=== PATIENT | male | born 1940 | race Caucasian/White ===

== ENCOUNTER 2017-10-06 00:32 | Day surgery (SDC) | payer MEDICARE, OTHER ==
[~2017-10-06] VITALS: Ht 175.3 cm; Wt 78.0 kg
[~2017-10-06 00:32] MED LIST: AMIO200 PO; ASPI325 PO; CEPH500 PO; FURO20 PO; HYDACE5 PO; METO50 PO; MULVITMINF PO; POTA10T PO; UBID100 PO
[2017-10-06] MEDS ORDERED: ATOR20 PO (06:24)
[2017-10-06] MEDS ORDERED: LISI5 PO (06:24)
[2017-10-06] MEDS ORDERED: Prilosec Otc20 MG (06:25)
[2017-10-06] MEDS ORDERED: CHOL10002 PO (06:25)
[2017-10-06] MEDS ORDERED: RANO500T PO (13:35)
== END 2017-10-06 15:14 | disposition home or self-care (01) ==
LOC: MHTC 00:32
DX: I25.119 Atherosclerotic heart disease of native coronary artery with unspecified angina pectoris (principal); I35.0 Nonrheumatic aortic (valve) stenosis; Z95.2 Presence of prosthetic heart valve; Z95.1 Presence of aortocoronary bypass graft; Z87.891 Personal history of nicotine dependence; I10 Essential (primary) hypertension; E78.00 Pure hypercholesterolemia, unspecified
CPT/HCPCS: 85347; 93455; 99152; 99153; C1769; C1894; J1644; J2250; J3010; J7030; Q9967

== ENCOUNTER → 2019-02-07 | Outpatient (CLI) | payer MEDICARE, OTHER ==
[~2019-02-07] MED LIST changes: +ATOR20 PO; +CHOL10002 PO; +LISI5 PO; +Prilosec Otc20 MG; +RANO500T PO
[2019-02-07 11:14] LABS: BASOPHILS ABSOLUTE AUTO 0.06 K/mm3 (0.00-0.23); BASOPHILS PERCENT AUTO 1 % (0-2); EOSINOPHILS ABSOLUTE AUTO 0.16 K/mm3 (0.00-0.68); EOSINOPHILS PERCENT AUTO 3 % (0-6); Hematocrit 33.2 % (37.0-53.0); Hemoglobin 10.7 g/dL (13.5-17.5); IMMATURE GRAN ABSOLUTE AUTO 0.02 K/mm3 (0.00-0.10); IMMATURE GRAN PERCENT AUTO 0 % (0-1); LYMPHOCYTES ABSOLUTE AUTO 1.04 K/mm3 (0.84-5.20); LYMPHOCYTES PERCENT AUTO 17 % (21-46); MONOCYTES ABSOLUTE AUTO 0.67 K/mm3 (0.16-1.47); MONOCYTES PERCENT AUTO 11 % (4-13); Mean Corpuscular HGB 24.7 pg (26.0-34.0); Mean Corpuscular HGB Conc 32.2 g/dL (31.5-36.5); Mean Corpuscular Volume 77 fL (80-100); Mean Platelet Volume 10.6 fL (9.1-12.4); NEUTROPHILS PERCENT AUTO 68 % (41-73); Platelet Count 217 K/mm3 (150-400); RDW Coefficient Variation 15.8 % (11.7-14.2); RDW Standard Deviation 43.1 fL (35.1-46.3); Red Blood Cell Count 4.34 M/mm3 (4.30-5.90); White Blood Cell Count 6.05 K/mm3 (4.00-11.30)
[2019-02-07 12:02] LABS: Alanine Aminotransfer (ALT/SGP 30 U/L (12-78); Albumin/Globulin Ratio 1.2 (0.8-1.8); Alk Phos 57 U/L (40-126); Anion Gap 9 mmol/L (6-16); Aspartate Aminotrans (AST/SGOT 29 U/L (12-37); Bilirubin, Total 0.6 mg/dL (0.1-1.0); Blood Urea Nitrogen 11 mg/dL (8-24); Bun/Creatinine Ratio 11.1 (12.0-20.0); CO2, Blood 25 mmol/L (21-32); CPK Creatine Kinase 167 U/L (39-308); Calcium, Blood 8.8 mg/dL (8.5-10.1); Chloride, Blood 96 mmol/L (98-108); Creatinine, Blood 0.99 mg/dL (0.60-1.20); Globulin, Blood 3.4 g/dL (2.2-4.0); Glomerular Filtration Rate >60 (60-); Glucose, Blood 98 mg/dL (70-99); Potassium, Blood 3.9 mmol/L (3.5-5.5); Sodium, Blood 130 mmol/L (136-145); Total Protein, Blood 7.4 g/dL (6.4-8.2)
[2019-02-07 12:11] LABS: Troponin I <0.017 ng/mL (0.000-0.040)
[2019-02-07 14:02] LABS: Percent Saturation 8.5 % (20.0-50.0)
== END | disposition home or self-care (01) ==
LOC: LAB SHORT 11:07 → LAB EV 11:07
PROVIDERS: General Practice
DX: I20.9 Angina pectoris, unspecified (principal); D64.9 Anemia, unspecified
CPT/HCPCS: 80053; 82550; 82728; 83540; 83550; 84484; 85025

== ENCOUNTER → 2020-11-30 | Outpatient (CLI) | payer MEDICARE, OTHER ==
[2020-12-01 05:52] LABS: Stool Occult Bld Immuno 1 Positive (NEGATIVE)
== END | disposition home or self-care (01) ==
LOC: LAB 14:10 → LAB SHORT 14:10
PROVIDERS: Nurse Practitioner Family
DX: Z12.11 Encounter for screening for malignant neoplasm of colon (principal)
CPT/HCPCS: G0328

== ENCOUNTER → 2022-02-12 | Outpatient (CLI) | payer MEDICARE, OTHER ==
[2022-02-12 11:25] LABS: BASOPHILS ABSOLUTE AUTO 0.09 K/mm3 (0.00-0.23); BASOPHILS PERCENT AUTO 1 % (0-2); EOSINOPHILS ABSOLUTE AUTO 0.09 K/mm3 (0.00-0.68); EOSINOPHILS PERCENT AUTO 1 % (0-6); Hematocrit 40.3 % (37.0-53.0); Hemoglobin 14.5 g/dL (13.5-17.5); IMMATURE GRAN ABSOLUTE AUTO 0.01 K/mm3 (0.00-0.10); IMMATURE GRAN PERCENT AUTO 0 % (0-1); LYMPHOCYTES ABSOLUTE AUTO 1.29 K/mm3 (0.84-5.20); LYMPHOCYTES PERCENT AUTO 16 % (21-46); MONOCYTES ABSOLUTE AUTO 0.77 K/mm3 (0.16-1.47); MONOCYTES PERCENT AUTO 9 % (4-13); Mean Corpuscular HGB 32.2 pg (26.0-34.0); Mean Corpuscular Volume 89 fL (80-100); Mean Platelet Volume 10.7 fL (9.1-12.4); NEUTROPHILS ABSOLUTE AUTO 6.03 K/mm3 (1.96-9.15); NEUTROPHILS PERCENT AUTO 73 % (41-73); Platelet Count 241 K/mm3 (150-400); RDW Coefficient Variation 12.6 % (11.7-14.2); Red Blood Cell Count 4.51 M/mm3 (4.30-5.90); White Blood Cell Count 8.28 K/mm3 (4.00-11.30)
[2022-02-12 11:38] LABS: Albumin/Globulin Ratio 1.2 (0.8-1.8); Bilirubin, Total 0.9 mg/dL (0.1-1.0); Bun/Creatinine Ratio 10.2 (12.0-20.0); Calcium, Blood 8.8 mg/dL (8.5-10.1); Creatinine, Blood 0.98 mg/dL (0.60-1.20); Globulin, Blood 3.4 g/dL (2.2-4.0); Potassium, Blood 3.9 mmol/L (3.5-5.5); Total Protein, Blood 7.4 g/dL (6.4-8.2)
== END ==
LOC: LAB SHORT 11:20
PROVIDERS: Physician Assistant
DX: K92.1 Melena (principal)
CPT/HCPCS: 80053; 85025

== ENCOUNTER → 2022-06-21 | Outpatient (CLI) | payer MEDICARE, OTHER | LOC: LAB SHORT 11:03 → PLD 11:03 | DX: D48.5 Neoplasm of uncertain behavior of skin (principal) | CPT/HCPCS: 88305 ==

== ENCOUNTER → 2022-08-23 | Outpatient (CLI) | payer MEDICARE, OTHER | END | disposition home or self-care (01) | LOC: LAB SHORT 11:32 | DX: E53.8 Deficiency of other specified B group vitamins (principal) | CPT/HCPCS: 82607; 82746 ==

== ENCOUNTER → 2023-07-21 | Outpatient (CLI) | payer MEDICARE, OTHER ==
[2023-07-21 12:14] LABS: BASOPHILS ABSOLUTE AUTO 0.07 K/mm3 (0.00-0.23); BASOPHILS PERCENT AUTO 1 % (0-2); EOSINOPHILS PERCENT AUTO 1 % (0-6); Hematocrit 33.3 % (37.0-53.0); Hemoglobin 11.3 g/dL (13.5-17.5); IMMATURE GRAN ABSOLUTE AUTO 0.02 K/mm3 (0.00-0.10); IMMATURE GRAN PERCENT AUTO 0 % (0-1); LYMPHOCYTES ABSOLUTE AUTO 1.37 K/mm3 (0.84-5.20); LYMPHOCYTES PERCENT AUTO 19 % (21-46); MONOCYTES ABSOLUTE AUTO 0.63 K/mm3 (0.16-1.47); MONOCYTES PERCENT AUTO 9 % (4-13); Mean Corpuscular HGB Conc 33.9 g/dL (31.5-36.5); Mean Corpuscular Volume 91 fL (80-100); Mean Platelet Volume 10.6 fL (9.1-12.4); NEUTROPHILS ABSOLUTE AUTO 4.91 K/mm3 (1.96-9.15); NEUTROPHILS PERCENT AUTO 69 % (41-73); Platelet Count 210 K/mm3 (150-400); RDW Coefficient Variation 13.7 % (11.7-14.2); RDW Standard Deviation 44.5 fL (35.1-46.3); Red Blood Cell Count 3.65 M/mm3 (4.30-5.90)
[2023-07-21 12:26] LABS: Albumin/Globulin Ratio 1.2 (0.8-1.8); Bilirubin, Total 0.6 mg/dL (0.1-1.0); Bun/Creatinine Ratio 8.8 (12.0-20.0); Calcium, Blood 8.8 mg/dL (8.5-10.1); Creatinine, Blood 0.91 mg/dL (0.60-1.20); Globulin, Blood 3.4 g/dL (2.2-4.0); Potassium, Blood 3.9 mmol/L (3.5-5.5); Total Protein, Blood 7.4 g/dL (6.4-8.2)
== END | disposition home or self-care (01) ==
LOC: LAB 12:10 → LAB SHORT 12:10
PROVIDERS: Physician Assistant
DX: K92.1 Melena (principal)
CPT/HCPCS: 80053; 85025

== ENCOUNTER 2023-09-16 10:58 | Emergency (ER) | payer MEDICARE, OTHER ==
[~2023-09-16] VITALS: Ht 175.3 cm; Wt 77.1 kg
[2023-09-16] MEDS ORDERED: AMOX-CLAV 875-1 EAC5 PO (11:23)
[2023-09-16] MEDS ORDERED: AMLODIPINE BESYL5 MG PO (11:23)
[2023-09-16] MEDS ORDERED: BENZONATATE100 MG PO (11:23)
[2023-09-16] MEDS ORDERED: NITROGLYCERIN0.4 M3 SL (11:23)
[2023-09-16] MEDS ORDERED: OMEP20ER (11:25)
[2023-09-16] MEDS ORDERED: KLOR-CON 1010 ME9 PO (11:25)
[2023-09-16] MEDS ORDERED: ATOR40TA PO (11:26)
[2023-09-16 11:44] LABS: BASOPHILS ABSOLUTE AUTO 0.05 K/mm3 (0.00-0.23); BASOPHILS PERCENT AUTO 0 % (0-2); EOSINOPHILS ABSOLUTE AUTO 0.02 K/mm3 (0.00-0.68); EOSINOPHILS PERCENT AUTO 0 % (0-6); Hematocrit 26.4 % (37.0-53.0); Hemoglobin 8.4 g/dL (13.5-17.5); IMMATURE GRAN ABSOLUTE AUTO 0.06 K/mm3 (0.00-0.10); IMMATURE GRAN PERCENT AUTO 1 % (0-1); LYMPHOCYTES ABSOLUTE AUTO 0.56 K/mm3 (0.84-5.20); LYMPHOCYTES PERCENT AUTO 5 % (21-46); MONOCYTES ABSOLUTE AUTO 0.53 K/mm3 (0.16-1.47); MONOCYTES PERCENT AUTO 5 % (4-13); Mean Corpuscular HGB 27.5 pg (26.0-34.0); Mean Corpuscular HGB Conc 31.8 g/dL (31.5-36.5); Mean Corpuscular Volume 86 fL (80-100); Mean Platelet Volume 10.9 fL (9.1-12.4); NEUTROPHILS ABSOLUTE AUTO 10.02 K/mm3 (1.96-9.15); NEUTROPHILS PERCENT AUTO 89 % (41-73); Platelet Count 331 K/mm3 (150-400); RDW Coefficient Variation 15.3 % (11.7-14.2); RDW Standard Deviation 47.5 fL (35.1-46.3); Red Blood Cell Count 3.06 M/mm3 (4.30-5.90); White Blood Cell Count 11.24 K/mm3 (4.00-11.30)
[2023-09-16 12:12] LABS: Albumin, Blood 3.4 g/dL (3.4-5.0); Albumin/Globulin Ratio 0.9 (0.8-1.8); Bilirubin, Total 0.5 mg/dL (0.1-1.0); Bun/Creatinine Ratio 22.4 (12.0-20.0); Calcium, Blood 8.3 mg/dL (8.5-10.1); Creatinine, Blood 0.67 mg/dL (0.60-1.20); Globulin, Blood 3.6 g/dL (2.2-4.0); Potassium, Blood 3.8 mmol/L (3.5-5.5)
[2023-09-16 13:26] LABS: International Normalized Ratio 1.1; Prothrombin Time Results 11.5 Sec (9.7-11.5)
[2023-09-16 14:47] LABS: Influenza A, PCR NEGATIVE (NEGATIVE); Influenza B, PCR NEGATIVE (NEGATIVE); Resp Syncytial Virus, PCR NEGATIVE (NEGATIVE); SARS-Cov-2 (COVID-19) PCR, MMC NEGATIVE (NEGATIVE)
[2023-09-16 15:15] VITALS: BP 124/64
== END 2023-09-16 16:30 | disposition short-term general hospital (02) ==
LOC: ER 10:58
PROVIDERS: Emergency Medicine; Student in an Organized Health Care Education/Training Program
DX: I21.4 Non-ST elevation (NSTEMI) myocardial infarction (principal); I11.0 Hypertensive heart disease with heart failure; I50.9 Heart failure, unspecified; D64.9 Anemia, unspecified; K92.2 Gastrointestinal hemorrhage, unspecified; I48.91 Unspecified atrial fibrillation; Z79.899 Other long term (current) drug therapy; Z79.82 Long term (current) use of aspirin
CPT/HCPCS: 0241U; 36430; 71046; 80053; 82272; 83880; 84484; 85025; 85610; 85730; 86850; 86900; 86901; 86923; 93005; 93010; 96374; 96375; 99285-25; C9113; J1940; J7030; P9016

== ENCOUNTER 2023-09-22 15:33 | Inpatient (IN) | payer MEDICARE, OTHER ==
[~2023-09-22] VITALS: Ht 175.3 cm; Wt 79.3 kg
[~2023-09-22 15:33] MED LIST changes: +AMLODIPINE BESYL5 MG PO; +AMOX-CLAV 875-1 EAC5 PO; +ATOR40TA PO; +BENZONATATE100 MG PO; +KLOR-CON 1010 ME9 PO; +NITROGLYCERIN0.4 M3 SL; +OMEP20ER PO
[2023-09-22 16:03] LABS: BASOPHILS ABSOLUTE AUTO 0.08 K/mm3 (0.00-0.23); BASOPHILS PERCENT AUTO 1 % (0-2); EOSINOPHILS PERCENT AUTO 2 % (0-6); Hematocrit 28.6 % (37.0-53.0); Hemoglobin 9.4 g/dL (13.5-17.5); IMMATURE GRAN ABSOLUTE AUTO 0.07 K/mm3 (0.00-0.10); IMMATURE GRAN PERCENT AUTO 1 % (0-1); LYMPHOCYTES ABSOLUTE AUTO 0.74 K/mm3 (0.84-5.20); LYMPHOCYTES PERCENT AUTO 6 % (21-46); MONOCYTES ABSOLUTE AUTO 1.39 K/mm3 (0.16-1.47); MONOCYTES PERCENT AUTO 11 % (4-13); Mean Corpuscular HGB 27.4 pg (26.0-34.0); Mean Corpuscular HGB Conc 32.9 g/dL (31.5-36.5); Mean Corpuscular Volume 83 fL (80-100); Mean Platelet Volume 10.4 fL (9.1-12.4); NEUTROPHILS ABSOLUTE AUTO 10.48 K/mm3 (1.96-9.15); NEUTROPHILS PERCENT AUTO 81 % (41-73); Platelet Count 362 K/mm3 (150-400); RDW Coefficient Variation 15.7 % (11.7-14.2); RDW Standard Deviation 47.4 fL (35.1-46.3); Red Blood Cell Count 3.43 M/mm3 (4.30-5.90); White Blood Cell Count 12.96 K/mm3 (4.00-11.30)
[2023-09-22 16:18] LABS: Albumin, Blood 3.3 g/dL (3.4-5.0); Bilirubin, Total 0.6 mg/dL (0.1-1.0); Bun/Creatinine Ratio 21.9 (12.0-20.0); Creatinine, Blood 0.69 mg/dL (0.60-1.20); Globulin, Blood 3.4 g/dL (2.2-4.0); Potassium, Blood 4.3 mmol/L (3.5-5.5); Total Protein, Blood 6.7 g/dL (6.4-8.2)
[2023-09-22 16:40] LABS: Source, Urine Clean Catch
[2023-09-22 17:09] LABS: Appearance, Urine Clear (Clear); Bilirubin, Urine Neg (Neg); Blood, Urine Neg (Neg); Color, Urine Yellow (P-Yellow); Glucose Qualitative, Urine Neg (Neg); Ketones, Urine Neg (Neg); Leukocyte Esterase, Urine Neg (Neg); Nitrite, Urine Neg (Neg); Protein, Urine 1+ (Neg); Urobilinogen, Urine NORM (Normal)
[2023-09-22 18:30] LABS: Influenza A, PCR NEGATIVE (NEGATIVE); Influenza B, PCR NEGATIVE (NEGATIVE); Resp Syncytial Virus, PCR NEGATIVE (NEGATIVE); SARS-Cov-2 (COVID-19) PCR, MMC NEGATIVE (NEGATIVE)
[2023-09-22 22:22] VITALS: BP 132/57
[2023-09-23 03:12] VITALS: BP 117/57
--- NOTE | 2023-09-23 04:20 | NUR ---
SHIFT SUMMARY GRISELDA WAS ALERT AND FULLY ORIENTED WHEN HE ARRIVED FROM THE ED AT 2200. PT ABLE TO TRANSFER WITH ASSIST OF 1-2 STAFF. PT HERE FOR COMPLAINTS OF WEAKNESS AND INCREASING SOB. PT ON RA AT THIS TIME SATTING IN THE 90'S, SOB ONLY WITH EXERTION. PT DENIES CHEST PAIN OR PRESSURE. PT COMPLAINING OF BEING UNABLE TO SLEEP FOR A FEW DAYS D/T COUGH, WILL FOLLOW UP WITH GRINDING SUPERVISOR HOSPITALIST FOR COUGH MANAGEMENT. PT RESTING IN BED AT A LOW POSITION WITH THE CALL LIGHT IN REACH WHICH HE USES APPROPRIATELY
[2023-09-23 06:00] LABS: BASOPHILS PERCENT AUTO 1 % (0-2); EOSINOPHILS ABSOLUTE AUTO 0.24 K/mm3 (0.00-0.68); EOSINOPHILS PERCENT AUTO 2 % (0-6); Hematocrit 26.7 % (37.0-53.0); Hemoglobin 8.9 g/dL (13.5-17.5); IMMATURE GRAN ABSOLUTE AUTO 0.06 K/mm3 (0.00-0.10); IMMATURE GRAN PERCENT AUTO 1 % (0-1); LYMPHOCYTES PERCENT AUTO 8 % (21-46); MONOCYTES ABSOLUTE AUTO 1.32 K/mm3 (0.16-1.47); MONOCYTES PERCENT AUTO 13 % (4-13); Mean Corpuscular HGB 27.5 pg (26.0-34.0); Mean Corpuscular HGB Conc 33.3 g/dL (31.5-36.5); Mean Corpuscular Volume 82 fL (80-100); Mean Platelet Volume 10.6 fL (9.1-12.4); NEUTROPHILS ABSOLUTE AUTO 8.01 K/mm3 (1.96-9.15); NEUTROPHILS PERCENT AUTO 76 % (41-73); Platelet Count 313 K/mm3 (150-400); RDW Coefficient Variation 15.7 % (11.7-14.2); Red Blood Cell Count 3.24 M/mm3 (4.30-5.90); White Blood Cell Count 10.53 K/mm3 (4.00-11.30)
[2023-09-23 06:28] LABS: Albumin/Globulin Ratio 0.9 (0.8-1.8); Bilirubin, Total 0.7 mg/dL (0.1-1.0); Bun/Creatinine Ratio 22.6 (12.0-20.0); Calcium, Blood 7.8 mg/dL (8.5-10.1); Creatinine, Blood 0.71 mg/dL (0.60-1.20); Globulin, Blood 3.3 g/dL (2.2-4.0); Potassium, Blood 3.9 mmol/L (3.5-5.5); Total Protein, Blood 6.3 g/dL (6.4-8.2)
[2023-09-23 07:14] VITALS: BP 132/53
[2023-09-23 14:52] VITALS: BP 126/52
--- NOTE | 2023-09-23 16:37 | NUR ---
SHIFT SUMMARY: PATIENT A/OX4, CALM, PLEASANT, COOPERATIVE c CARE, ANSWER TO QUESTIONS APPROPRIATELY AND ABLE TO MAKE NEEDS KNOWN. AT BEGINNING OF SHIFT, PATIENT REPORTS SOB, PER PATIENT "I DID NOT HAVE SLEEP BECAUSE EVERYTIME I FALL ASLEEP WAKING UP GASPING FOR AIR." THIS RN PLACED PATIENT ON 1L O2 FOR COMFORT. PATIENT REPORTS LATER ON THE SHIFT, "THE O2 REALLY HELPS AND MY BREATHING HAS IMPROVED I DON'T FEEL HAVING SOB AND I WAS ABLE TO TAKE A NAP." PATIENT WORK c PT TODAY, PT RECOMMENDED SNF. PATIENT ABLE TO SIT UP IN THE RECLINER CHAIR FOR 2 1/2 HRS THIS SHIFT, AND TOLERATED WELL. PATIENT IS CONTINENCE OF BLADDER, USES URINAL IN BED/CHAIR INDEPENDENTLY. PATIENT REPORTS SLIGHT PRODUCTIVE COUGH c WHITE THICK PHLEGM, MEDICATED X1 PRN FOR COUGH c GOOD EFFECT. PATIENT RECEIVED IV LASIX, AND SCHEDULED MEDS PER EMAR. VITAL SIGNS REVIEWED. PIV TO LAC SALINE LOCKED. CALL LIGHT IN REACH.
[2023-09-23 19:27] VITALS: BP 118/52
--- NOTE | 2023-09-23 19:36 | NUR ---
PT'S RN REQUESTED MED CHANGES. REPORTED PT WITH HYPEREMESIS WITH SEVERE EPIGASTRIC PAIN. THAT THE ZOFRAN WAS NOT WORKING, PT REPORTEDLY PREFERRED PHENERGAN NV; AND FENTANYL AND/OR DILAUDID WAS MORE EFFECTIVE. CALL PLACED TO MD HORSE RIDING COACH OR INSTRUCTOR, DR HOLLIS VOICED HE WOULD ASSESS AND PUT IN THE ORDERS.
[2023-09-24 04:33] VITALS: BP 119/63
--- NOTE | 2023-09-24 04:48 | NUR ---
SHIFT SUMMARY GRISELDA WAS ALERT AND FULLY ORIENTED ON ASSESSMENT. PT DENIES PAIN AND SOB AT REST. NO ACUTE EVENTS TONIGHT, AND NO NOTABLE CHANGES IN CONDITION. PT STATES THAT HE FEELS GOOD TODAY, COUGHING HAS IMPROVED FROM PREVIOUS NIGHT. PRIMARY PT CONCERN TONIGHT IS CONSTIPATION. BOWEL CARE PROVIDED PER EMAR. PT RESTING IN BED AT A LOW POSITION WITH CALL LIGHT IN REACH.
[2023-09-24 04:56] LABS: Hematocrit 28.4 % (37.0-53.0); Hemoglobin 9.2 g/dL (13.5-17.5); Mean Corpuscular HGB 26.6 pg (26.0-34.0); Mean Corpuscular HGB Conc 32.4 g/dL (31.5-36.5); Mean Corpuscular Volume 82 fL (80-100); Mean Platelet Volume 10.3 fL (9.1-12.4); Platelet Count 322 K/mm3 (150-400); RDW Coefficient Variation 15.9 % (11.7-14.2); RDW Standard Deviation 47.4 fL (35.1-46.3); Red Blood Cell Count 3.46 M/mm3 (4.30-5.90); White Blood Cell Count 13.72 K/mm3 (4.00-11.30)
[2023-09-24 05:20] LABS: Anion Gap 5 mmol/L (6-16); Blood Urea Nitrogen 18 mg/dL (8-24); Bun/Creatinine Ratio 25.3 (12.0-20.0); CO2, Blood 28 mmol/L (21-32); Calcium, Blood 8.1 mg/dL (8.5-10.1); Chloride, Blood 91 mmol/L (98-108); Creatinine, Blood 0.71 mg/dL (0.60-1.20); Glomerular Filtration Rate 90 (60-); Glucose, Blood 106 mg/dL (70-99); Magnesium, Blood 2.1 mg/dL (1.6-2.4); Phosphorus, Blood 3.1 mg/dL (2.5-4.9); Sodium, Blood 124 mmol/L (136-145)
[2023-09-24 07:33] VITALS: BP 117/53
[2023-09-24 15:01] VITALS: BP 135/56
--- NOTE | 2023-09-24 15:11 | NUR ---
SHIFT SUMMARY: NO NEW CHANGES IN PATIENT CONDITION THIS SHIFT. PATIENT CONTINUES TO BE A/OX4, PLEASANT AND COOPERATIVE c CARE. PATIENT USES CALL LIGHT APPROPRIATELY AND ABLE TO MAKE NEEDS KNOWN. PATIENT STILL ON 1L OF O2 FOR COMFORT. PATIENT DENIES SOB, CP/PRESSURE, N/V AND GENERALIZED PAIN. PATIENT HAD SHOWER AND LINEN CHANGED TODAY. PATIENT REFUSED TO SIT UP IN THE RECLINER CHAIR THIS SHIFT. PATIENT HAS EXCELLENT APPETITE, CONTINENCE OF BLADDER AND USES URINAL IN BED. PATIENT HAD LARGE, BM AND REPORTS "FEELING A LOT BETTER AFTER BM." PATIENT HAS NO COMPLAINTS OR DENIES NEW CONCERNED THIS SHIFT. PATIENT RECEIVED SCHEDULED MEDS PER EMAR. VITAL SIGNS REVIEWED. PIV TO LAC SALINE LOCKED. CALL LIGHT IN REACH.
[2023-09-24 19:24] VITALS: BP 128/53
[2023-09-25 03:18] VITALS: BP 136/60
--- NOTE | 2023-09-25 04:18 | NUR ---
SHIFT SUMMARY GRISELDA WAS ALERT AND FULLY ORIENTED ON ASSESSMENT. PT FINALLY HAD A BM ON DAY SHIFT. PT COUGH HAS REDUCED IN FREQUENCY. NO ACUTE EVENTS TONIGHT OR NOTED CHANGES IN CONDITION. AT THIS TIME PT RESTING IN BED AT A LOW POSITION WITH THE CALL LIGHT IN REACH. PT AWAITING PLACEMENT TO SNF.
[2023-09-25 06:11] LABS: Hematocrit 28.8 % (37.0-53.0); Hemoglobin 9.4 g/dL (13.5-17.5); Mean Corpuscular HGB 26.7 pg (26.0-34.0); Mean Corpuscular HGB Conc 32.6 g/dL (31.5-36.5); Mean Corpuscular Volume 82 fL (80-100); Mean Platelet Volume 10.4 fL (9.1-12.4); Platelet Count 321 K/mm3 (150-400); RDW Coefficient Variation 15.9 % (11.7-14.2); RDW Standard Deviation 47.7 fL (35.1-46.3); Red Blood Cell Count 3.52 M/mm3 (4.30-5.90); White Blood Cell Count 12.03 K/mm3 (4.00-11.30)
[2023-09-25 06:39] LABS: Albumin, Blood 2.9 g/dL (3.4-5.0); Anion Gap 5 mmol/L (6-16); Blood Urea Nitrogen 15 mg/dL (8-24); Bun/Creatinine Ratio 23.7 (12.0-20.0); CO2, Blood 29 mmol/L (21-32); Chloride, Blood 89 mmol/L (98-108); Creatinine, Blood 0.63 mg/dL (0.60-1.20); Glomerular Filtration Rate 93 (60-); Glucose, Blood 100 mg/dL (70-99); Phosphorus, Blood 2.9 mg/dL (2.5-4.9); Potassium, Blood 3.9 mmol/L (3.5-5.5); Sodium, Blood 123 mmol/L (136-145)
[2023-09-25 08:32] VITALS: BP 150/64
--- NOTE | 2023-09-25 14:43 | NUR ---
SHIFT SUMMARY PT AWAKE DURING SHIFT REPORT. UP TO EOB TO EAT MEALS. UP TO BSC NEEDED; [address] KEBEDE IN TO SEE PT THIS AM; NO NEW ORDERS. PT MEDICALLY STABLE, WAITING TO D/C TO SNF TOMORROW. PT IS SLIGHTLY WEAK AND DECONDITIONED. UP WITH SBA. PT HAS REMAINED ON RA SINCE START OF SHIFT; BIOX @ 98%. MEDICATED X1 FOR COUGH. LUNGS T/O WITH SCATTERED CRACKLES. PT IS EATING, DRINKING, AND VOIDING WELL. PT IS A&O, PLEASANT AND CO-OP. ABLE TO MAKE NEEDS KNOWN. CALL LT IN REACH.
[2023-09-25 15:51] VITALS: BP 141/56
[2023-09-25 19:26] VITALS: BP 104/76
--- NOTE | 2023-09-26 04:27 | NUR ---
SHIFT SUMMARY PT A&O, CALM AND COOPERATIVE WITH CARE. PT ON RA MOST OF SHIFT, OXYGEN PLACED AT 0400 AT 1.5L VIA NC. PT VOIDING USING URINAL INDEPENDENTLY AND EXPRESSES THAT HE IS URINATING FREQUENTLY. STATED THAT ONCE THE FLOW STARTS HE HAS NO PROBLEMS. MAINTAINED STRICT I&O. MEDICATED FOR BACK PAIN AND COUGH--SEE EMAR. PT CALLS APPROPRAITELY FOR NEEDS. BED KEPT IN LOWEST POSITION WITH CALL LIGHT IN REACH.
[2023-09-26 05:10] VITALS: BP 137/53
[2023-09-26 05:14] LABS: Hematocrit 28.3 % (37.0-53.0); Hemoglobin 9.1 g/dL (13.5-17.5); Mean Corpuscular HGB 26.6 pg (26.0-34.0); Mean Corpuscular HGB Conc 32.2 g/dL (31.5-36.5); Mean Corpuscular Volume 83 fL (80-100); Mean Platelet Volume 10.6 fL (9.1-12.4); Platelet Count 303 K/mm3 (150-400); RDW Coefficient Variation 15.9 % (11.7-14.2); RDW Standard Deviation 47.4 fL (35.1-46.3); Red Blood Cell Count 3.42 M/mm3 (4.30-5.90); White Blood Cell Count 10.88 K/mm3 (4.00-11.30)
[2023-09-26 05:45] LABS: Albumin, Blood 2.8 g/dL (3.4-5.0); Anion Gap 6 mmol/L (6-16); Blood Urea Nitrogen 15 mg/dL (8-24); Bun/Creatinine Ratio 25.6 (12.0-20.0); CO2, Blood 29 mmol/L (21-32); Calcium, Blood 8.1 mg/dL (8.5-10.1); Chloride, Blood 88 mmol/L (98-108); Creatinine, Blood 0.59 mg/dL (0.60-1.20); Ferritin, Serum 285 ng/mL (26-388); Glomerular Filtration Rate 95 (60-); Glucose, Blood 103 mg/dL (70-99); Iron Serum 21 ug/dL (65-175); Percent Saturation 8.6 % (20.0-50.0); Phosphorus, Blood 2.7 mg/dL (2.5-4.9); Potassium, Blood 3.9 mmol/L (3.5-5.5); Sodium, Blood 123 mmol/L (136-145); Total Iron Binding Capacity 244 ug/dL (250-450)
[2023-09-26 07:53] VITALS: BP 129/55
[2023-09-26 12:26] LABS: SARS-Cov-2 (COVID-19) PCR, MMC NEGATIVE (NEGATIVE)
[2023-09-26] MEDS ORDERED: DOCUZEN 8.6-501 EACH PO (13:33)
[2023-09-26] MEDS ORDERED: FURO20 PO (13:33)
[2023-09-26] MEDS ORDERED: MIRALAX17 GM PO (13:33)
[2023-09-26] MEDS ORDERED: FERSU300 PO (13:33)
[2023-09-26] MEDS ORDERED: MULVITA PO (13:34)
--- NOTE | 2023-09-26 14:47 | NUR ---
PT AWAKE AT START OF SHIFT, SITTING UP TO EOB WATCHING TV. PT MEDICALLY STABLE WAITING FOR D/C TO SNF. WIENER PACKER ARRANGING TX TO [facility] FOR TODAY AT 14:30. PT IS DRESSED AND READY TO LEAVE. SOFTBALL WINDER HERE EARLIER TO SEE PT AND ASSIST WITH HOME NEEDS. IV SITE D/C'D WNL'S. PT DENIES FURTHER NEEDS AT THIS TIME. BELONGINGS BAGGED FOR D/C.
== END 2023-09-26 15:09 | DRG 292 ==
LOC: ER 15:33 → MEDS 21:34
PROVIDERS: Emergency Medicine; Internal Medicine; Student in an Organized Health Care Education/Training Program; ADMIT Student in an Organized Health Care Education/Training Program
DX: I50.33 Acute on chronic diastolic (congestive) heart failure (principal); E87.1 Hypo-osmolality and hyponatremia; D64.9 Anemia, unspecified; I25.10 Atherosclerotic heart disease of native coronary artery without angina pectoris; J44.9 Chronic obstructive pulmonary disease, unspecified; Z66 Do not resuscitate; R54 Age-related physical debility; I48.91 Unspecified atrial fibrillation; I10 Essential (primary) hypertension; Z95.3 Presence of xenogenic heart valve; Z95.1 Presence of aortocoronary bypass graft; Z11.52 Encounter for screening for COVID-19
CPT/HCPCS: 0241U; 36415; 71046; 80053; 80069; 82728; 83540; 83550; 83735; 83880; 83930; 83935; 84145; 85025; 85027; 93005; 93010; 94760; 94762; 96374; 97116; 97162; 97530; 99285-25; A9270; J1940; U0002

== ENCOUNTER 2023-10-02 09:36 | Inpatient (IN) | payer MEDICARE, OTHER ==
[~2023-10-02] VITALS: Ht 177.8 cm; Wt 80.8 kg
[2023-10-02] VITALS (18 sets, daily range): BP systolic 113–147; BP diastolic 43–89
[~2023-10-02 09:36] MED LIST changes: +DOCUZEN 8.6-501 EACH PO; +FERSU300 PO; +MIRALAX17 GM PO; +MULVITA PO
[2023-10-02 10:50] LABS: BASOPHILS ABSOLUTE AUTO 0.01 K/mm3 (0.00-0.23); BASOPHILS PERCENT AUTO 0 % (0-2); EOSINOPHILS ABSOLUTE AUTO 0.01 K/mm3 (0.00-0.68); EOSINOPHILS PERCENT AUTO 0 % (0-6); Hematocrit 26.2 % (37.0-53.0); Hemoglobin 9.2 g/dL (13.5-17.5); IMMATURE GRAN ABSOLUTE AUTO 0.11 K/mm3 (0.00-0.10); IMMATURE GRAN PERCENT AUTO 1 % (0-1); LYMPHOCYTES ABSOLUTE AUTO 0.93 K/mm3 (0.84-5.20); LYMPHOCYTES PERCENT AUTO 6 % (21-46); MONOCYTES ABSOLUTE AUTO 1.11 K/mm3 (0.16-1.47); MONOCYTES PERCENT AUTO 7 % (4-13); Mean Corpuscular HGB 26.1 pg (26.0-34.0); Mean Corpuscular HGB Conc 35.1 g/dL (31.5-36.5); Mean Corpuscular Volume 74 fL (80-100); Mean Platelet Volume 10.3 fL (9.1-12.4); NEUTROPHILS ABSOLUTE AUTO 12.96 K/mm3 (1.96-9.15); NEUTROPHILS PERCENT AUTO 86 % (41-73); NRBC ABSOLUTE 0.05 K/mm3 (0.00-0.02); NRBC Auto 0.3 /100 WBC (0.0-0.2); Platelet Count 349 K/mm3 (150-400); RDW Coefficient Variation 16.1 % (11.7-14.2); RDW Standard Deviation 43.1 fL (35.1-46.3); Red Blood Cell Count 3.52 M/mm3 (4.30-5.90); White Blood Cell Count 15.13 K/mm3 (4.00-11.30)
[2023-10-02] MEDS ORDERED: HYDHCL25 PO (11:06)
[2023-10-02 11:16] LABS: Albumin, Blood 3.3 g/dL (3.4-5.0); Albumin/Globulin Ratio 0.9 (0.8-1.8); Bilirubin, Total 1.2 mg/dL (0.1-1.0); Bun/Creatinine Ratio 33.9 (12.0-20.0); Calcium, Blood 8.4 mg/dL (8.5-10.1); Creatinine, Blood 0.44 mg/dL (0.60-1.20); Globulin, Blood 3.5 g/dL (2.2-4.0); Potassium, Blood 5.2 mmol/L (3.5-5.5); Total Protein, Blood 6.8 g/dL (6.4-8.2)
--- NOTE | 2023-10-02 14:40 | NUR ---
ASSUMED CARE PATIENT ARRIVED FROM ER TO ICU 11 VIA GURNEY. NO MEDICATIONS INF. FAMILY IN ICU WAITING AREA. PATIENT MAKES EYE CONTACT TO VERBAL STIMULI AND FOLLOWS COMMANDS. REPORT RECEIVED FROM GABRIELA CROUCH.
[2023-10-02] MEDS ORDERED: ASPI81CH PO (15:54)
[2023-10-02 15:58] LABS: Bun/Creatinine Ratio 28.5 (12.0-20.0); Creatinine, Blood 0.53 mg/dL (0.60-1.20); Potassium, Blood 5.1 mmol/L (3.5-5.5)
[2023-10-02] MEDS ORDERED: Isosorbide Mono30 MG PO (16:04)
[2023-10-02] MEDS ORDERED: UBID10 PO (16:04)
[2023-10-02 18:23] LABS: Bun/Creatinine Ratio 26.6 (12.0-20.0); Creatinine, Blood 0.53 mg/dL (0.60-1.20); Potassium, Blood 5.1 mmol/L (3.5-5.5)
--- NOTE | 2023-10-02 19:26 | NUR ---
SHIFT SUMMARY PATIENT MEDICATED WITH 3% SALINE 50ML BOLUS AND STARTED ON NS @ 100ML/HR FOR LOW SODIUM. PATIENT REQUIRED STRAIGHT CATH TO OBTAIN URINE SAMPLE. NO BM THIS SHIFT. ADMISSION AND MED REC COMPLETED. PICC LINE PLACED THIS SHIFT. BEDSIDE SHIFT REPORT COMPLETED WITH AGBRIELA EDWARD.
[2023-10-02 20:02] LABS: Bun/Creatinine Ratio 26.3 (12.0-20.0); Calcium, Blood 7.8 mg/dL (8.5-10.1); Creatinine, Blood 0.53 mg/dL (0.60-1.20); Potassium, Blood 5.1 mmol/L (3.5-5.5)
[2023-10-02 22:04] LABS: Bun/Creatinine Ratio 30.6 (12.0-20.0); Calcium, Blood 7.5 mg/dL (8.5-10.1); Creatinine, Blood 0.46 mg/dL (0.60-1.20); Potassium, Blood 5.1 mmol/L (3.5-5.5)
[2023-10-02 23:59] LABS: Bun/Creatinine Ratio 31.5 (12.0-20.0); Calcium, Blood 7.7 mg/dL (8.5-10.1); Creatinine, Blood 0.48 mg/dL (0.60-1.20); Potassium, Blood 5.1 mmol/L (3.5-5.5)
[2023-10-03] VITALS (35 sets, daily range): BP systolic 110–164; BP diastolic 39–101
--- NOTE | 2023-10-03 00:54 | NUR ---
ASSUMED CARE ASSUMED CARE AT 1900. PT A/O X 4. FORGETFUL AT TIMES, NEEDS REMINDERS ON HOW TO USE SUCTION AND CALL LIGHT. PT ATTEMPTING TO SUCTION SELF WITH CALL LIGHT AND STATING "I'M NOT STRONG ENOUGH TO PULL THE BUTTON" AFTER THIS RN ANSWERS CALL LIGHT. VSS. ON 2L NC. PT SPO2 DOWN TO 87 AT TIMES W/O O2. PT HAS STRONG COUGH AND COUGHING UP MODERATE AMOUNT OF SPUTUM. ABLE TO SUCTION SELF WITH ENCOURAGEMENT. CALL TO DR MALLOY REGARDING NA LEVELS. ORDERS RECEIVED. NS AT 100ML/HR AND TURNED TO 50ML/HR PER PROVIDER. BRIEF IN PLACE. C/D/I. ASKED PT IF HE NEEDED TO VOID AND PT STATED "NOT YET". CALL LIGHT IN REACH.
[2023-10-03 02:32] LABS: Magnesium, Blood 1.8 mg/dL (1.6-2.4); Uric Acid, Blood 3.2 mg/dL (3.5-7.2)
[2023-10-03 02:36] LABS: BASOPHILS ABSOLUTE AUTO 0.02 K/mm3 (0.00-0.23); BASOPHILS PERCENT AUTO 0 % (0-2); EOSINOPHILS ABSOLUTE AUTO 0.01 K/mm3 (0.00-0.68); EOSINOPHILS PERCENT AUTO 0 % (0-6); Hematocrit 23.1 % (37.0-53.0); Hemoglobin 7.9 g/dL (13.5-17.5); IMMATURE GRAN PERCENT AUTO 1 % (0-1); LYMPHOCYTES PERCENT AUTO 5 % (21-46); MONOCYTES ABSOLUTE AUTO 1.92 K/mm3 (0.16-1.47); MONOCYTES PERCENT AUTO 10 % (4-13); Mean Corpuscular HGB 26.2 pg (26.0-34.0); Mean Corpuscular HGB Conc 34.2 g/dL (31.5-36.5); Mean Corpuscular Volume 77 fL (80-100); Mean Platelet Volume 10.5 fL (9.1-12.4); NEUTROPHILS ABSOLUTE AUTO 16.27 K/mm3 (1.96-9.15); NEUTROPHILS PERCENT AUTO 84 % (41-73); NRBC ABSOLUTE 0.06 K/mm3 (0.00-0.02); NRBC Auto 0.3 /100 WBC (0.0-0.2); Platelet Count 309 K/mm3 (150-400); RDW Coefficient Variation 16.2 % (11.7-14.2); RDW Standard Deviation 45.1 fL (35.1-46.3); Red Blood Cell Count 3.02 M/mm3 (4.30-5.90); White Blood Cell Count 19.32 K/mm3 (4.00-11.30)
[2023-10-03 02:42] LABS: Albumin, Blood 2.7 g/dL (3.4-5.0); Albumin/Globulin Ratio 0.8 (0.8-1.8); Bilirubin, Total 0.9 mg/dL (0.1-1.0); Bun/Creatinine Ratio 31.1 (12.0-20.0); Calcium, Blood 7.8 mg/dL (8.5-10.1); Creatinine, Blood 0.45 mg/dL (0.60-1.20); Globulin, Blood 3.2 g/dL (2.2-4.0); Potassium, Blood 5.2 mmol/L (3.5-5.5); Total Protein, Blood 5.9 g/dL (6.4-8.2)
--- NOTE | 2023-10-03 04:35 | NUR ---
UPDATE APPROX 0340, PT PULLING OFF CORDS/GOWN AND SIDEWAYS IN BED WITH LEGS OUT. 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 PT DID STATE HE WAS IN THE HOSPITAL BUT REMAINED FOCUSED ON "BAD PEOPLE GETTING HIM". PT REPOSITIONED IN BED. CRACKLES IN LUNGS, MORE RIGHT VS LEFT. PUPILS SLIGHTLY SLUGGISH. ABLE TO SQUEEZE HANDS/MOVE TOES. PT THEN BEGAN TO STARE UPWARD, UNRESPONSIVE, AND HAVING PVC'S ON MONITOR. ANOTHER NURSE AND CHARGE NURSE CALLED IN ROOM. DR CELIS CALLED AND UPDATED. DR CELIS STATED HE WILL COME TO BEDSIDE. PT SLOWLY BEGAN TO WAKE UP, AND FOLLOW DIRECTIONS. "EPISODE" LASTED APPROX [address] RICHARDSON AT BEDSIDE AND PT A/O X 4 AND BACK TO BASELINE. ORDER FOR STAT BMP, NO OTHER ORDERS.
[2023-10-03 05:12] LABS: Bun/Creatinine Ratio 32.6 (12.0-20.0); Calcium, Blood 7.7 mg/dL (8.5-10.1); Creatinine, Blood 0.43 mg/dL (0.60-1.20)
--- NOTE | 2023-10-03 06:33 | NUR ---
SHIFT SUMMARY SEE PREVIOUS NOTES. VSS T/O NIGHT. AFIB RATE 60-70'S. ON 2LNC. PT APPEARS TO BE COUGHING LESS THIS AM. NO OTHER UNRESPONSIVE EPISODES. PT SLIGHTLY MORE LETHARGIC THIS AM BUT A/O X 4. PT HAD ONE EPISODE OF INCONT T/O NIGHT. CALL LIGHT IN REACH. WILL REPORT OFF TO ONCOMING RN.
--- NOTE | 2023-10-03 07:56 | NUR ---
ASSUMED CARE I ASSUMED CARE OF THIS PATIENT AT 0715. BEDSIDE SHIFT REPORT COMPLETED WITH Tito EDWARD RN. PATIENT LYING IN BED AWAKE WITH SUCTION IN HAND, CALL LIGHT IN REACH, AND NS INF @ 50ML/HR TO [facility] PICC. ANSWERS QUESTIONS APPROPRIATELY AND TRACKS TO SOUND AND MOVEMENT. NO FAMILY OR VISITORS AT THIS TIME. ATTENDS IN PLACE.
[2023-10-03 08:50] LABS: Potassium, Blood 5.1 mmol/L (3.5-5.5)
--- NOTE | 2023-10-03 09:38 | NUR ---
LUNG SOUNDS COARS/EDEMA CALL MADE TO DR. MALLOY WITH UPDATED SODIUM LEVEL OF 110 AND PATIENT ASSESSMENT OF COARSE LUNG SOUNDS, AUDIBLE GURGLING, AND PITTING EDEMA IN ALL FOUR EXTREMITIES. ORDERS RECEIVED TO DISCONTINUE NS FOR NOW, IV BUMES 1MG X 1, BMP LAB AND REPEAT CHEST XR. ORDERS PLACED.
[2023-10-03 10:36] LABS: Bun/Creatinine Ratio 29.5 (12.0-20.0); Calcium, Blood 7.9 mg/dL (8.5-10.1); Creatinine, Blood 0.44 mg/dL (0.60-1.20); Potassium, Blood 5.1 mmol/L (3.5-5.5)
--- NOTE | 2023-10-03 12:03 | NUR ---
Spiritual Care Visit. Pt. is resting when I enter the room. Pts. daughter Anitha is present at bedside and welcomes my visit. Anitha verbalized that she is from [place]. Pt. responds and joins the conversation. Pt. verbalized that he is a man of [place], but also verbalized that he has not identified with a local alevism. Listen with empathy and calming presence. Facilitated a life review. Pt. displays evidence of being at peace. Prayed with Pt. and daughter. Pt. softly verbalized gratitude for the spiritual care visit. and the daughter welcomed this a/c technician to return.
[2023-10-03 13:00] LABS: Potassium, Blood 4.6 mmol/L (3.5-5.5)
--- NOTE | 2023-10-03 16:01 | NUR ---
Review of pt with Nursing states he has been cooperative but ability to track conversation has wavered. She noted some forgetfulness. spoke to the patient about his day to day life. He reviewed his work life in his original home town. Kary montoya grew up in the same town. We reminised about the food anc culture and gave the patient some respite form his stress. We then discussed his medical needs. He stated he had to have the valve replaced or he would . The only reason he wanted it done was because the could go through the groin like a heart cath and place the valve. We settled on lets see how you recover from this event and see if we can get you well enough to tolerate the procedure. Wedicussed if he sould get sicker what would you want. He stated to be comfortable. Ended conversation by advising him we will support and respect his decisions and promote dignity and avoid extrordinary suffering.
[2023-10-03 16:30] LABS: Source, Urine Foley catheter
[2023-10-03 16:38] LABS: Appearance, Urine Cloudy (Clear); Bilirubin, Urine Neg (Neg); Blood, Urine 5+ (Neg); Color, Urine Red (P-Yellow); Glucose Qualitative, Urine Neg (Neg); Ketones, Urine Neg (Neg); Leukocyte Esterase, Urine 1+ (Neg); Nitrite, Urine Neg (Neg); Protein, Urine 3+ (Neg); Urobilinogen, Urine 1+ (Normal)
[2023-10-03 17:06] LABS: Bacteria Many /hpf; Hyaline Casts 0-2 /lpf (0-2); Red Blood Cells, Urine 50-100 /hpf (0-2); Squamous Epithelial Cells Rare /hpf (Few)
[2023-10-03 17:12] LABS: Potassium, Blood 4.8 mmol/L (3.5-5.5)
--- NOTE | 2023-10-03 18:35 | NUR ---
SHIFT SUMMARY PATIENT SLEPT OFF AN ON THROUGHOUT SHIFT. 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 PATIENT REQUIRED STRAIGHT CATH AND FAILED CONDOM CATH. GARCIA PLACED PER MD ORDER FOR STRICT I&O. NO BM THIS SHIFT. 3% NS 50ML Q8H, BUMEX TID STARTED THIS AFTERNOON. SODIUM INCREASED TO 111. NO OTHER CHANGES DURING SHIFT.
[2023-10-04] VITALS (11 sets, daily range): BP systolic 107–152; BP diastolic 35–56
[2023-10-04 04:00] LABS: BASOPHILS ABSOLUTE AUTO 0.03 K/mm3 (0.00-0.23); EOSINOPHILS ABSOLUTE AUTO 0.02 K/mm3 (0.00-0.68); EOSINOPHILS PERCENT AUTO 0 % (0-6); Hematocrit 23.5 % (37.0-53.0); IMMATURE GRAN ABSOLUTE AUTO 0.19 K/mm3 (0.00-0.10); IMMATURE GRAN PERCENT AUTO 1 % (0-1); LYMPHOCYTES ABSOLUTE AUTO 0.64 K/mm3 (0.84-5.20); LYMPHOCYTES PERCENT AUTO 3 % (21-46); MONOCYTES ABSOLUTE AUTO 1.54 K/mm3 (0.16-1.47); MONOCYTES PERCENT AUTO 7 % (4-13); Mean Corpuscular HGB 26.2 pg (26.0-34.0); Mean Corpuscular Volume 77 fL (80-100); Mean Platelet Volume 10.1 fL (9.1-12.4); NEUTROPHILS ABSOLUTE AUTO 18.76 K/mm3 (1.96-9.15); NEUTROPHILS PERCENT AUTO 89 % (41-73); NRBC ABSOLUTE 0.07 K/mm3 (0.00-0.02); NRBC Auto 0.3 /100 WBC (0.0-0.2); Platelet Count 292 K/mm3 (150-400); RDW Coefficient Variation 16.2 % (11.7-14.2); RDW Standard Deviation 45.2 fL (35.1-46.3); Red Blood Cell Count 3.05 M/mm3 (4.30-5.90); White Blood Cell Count 21.18 K/mm3 (4.00-11.30)
[2023-10-04 04:12] LABS: BASOPHILS PERCENT AUTO 0 % (0-2)
[2023-10-04 04:37] LABS: Bun/Creatinine Ratio 31.9 (12.0-20.0); Calcium, Blood 7.9 mg/dL (8.5-10.1); Creatinine, Blood 0.44 mg/dL (0.60-1.20); Potassium, Blood 4.7 mmol/L (3.5-5.5)
--- NOTE | 2023-10-04 06:10 | NUR ---
SHIFT SUMMARY REMAINS A/Ox3-4 AND COOPERATIVE WITH CARE. CAN BE SLEEPY/SLOW TO RESPOND AT TIMES WELL INTERMITTENT BOUTS OF CONFUSION AT NIGHT. FOR A BRIEF TIME PT THOUGHT HE WAS AT HOME AND ATTEMPTED TO GET OUT OF BED STATING "I NEED TO GET GOING TO WORK, IM GONNA BE LATE!". EASILY REDIRECTABLE WITH CARE. CARDIAC, REMAINS IN AFIB RANGING 60-80'S WITH NO REPORTS OF CP OR PRESSURE DURING THE NIGHT. SBP REMAINS STABLE RANGING 110-130'S WITH MAP REMAINING >65. RESPIRATORY, MAINTAINS SPO2 >95% ON 2L VIA NC. LS CONTIUE TO BE VERY COARSE T/O. COUGH IS WEAK, BUT HE IS ABLE TO COUGH UP THICK/ANDREW/WHITE SECREATIONS TO SUCTION. DOES DESAT TO 88-92% DURING COUGHING EPISODES, BUT WOULD RECOVER WELL. GI/, GARCIA CATH REMAINS PATENT DRAININTG RED URINE. SEDIMENT NOTED WITH DRAINAGE. NO BM THIS SHIFT, BS REMAIN HYPOACTIVE. GENERAL WEAKNESS NOTED T/O, BUT STABLE TO MOVE BOTH UPPER AND LOWER EXTREMITIES. UPDATED PT'S DAUGHTER ABOUT PT'S CURRENT STATUS. ATTEMPTED TO GIVE SIPS OF WATER VIA SPOON, BUT PT WOULD EXPERIENCE A COUGHING FIT. ST EVAL ORDERED FOR POSSIBLE ASPIRATION. VSS, CHADN OF THIS NOTE VSSCHADN OF THIS NOTE
--- NOTE | 2023-10-04 10:33 | NUR ---
ASSUMED CARE/COMFORT CARE I ASSUMED CARE OF THIS PATIENT AT 0715. BEDSIDE SHIFT REPORT RECEIVED FROM GABRIELA BLANDON. PATIENT WAS LYING IN BED WITH EYES CLOSED. 2LPM VIA NC IN PLACE. SPO2 HIGH 90'S-100%. DIFFICULT TO AROUSE AND ONLY NODS HEAD WEAKLY. DR. SIEGEL TO BEDSIDE AND REQUESTED MEETING WITH PATIENT'S DAUGHTER AND PALLIATIVE CARE NURSE. MEETING ORGANIZED. AFTER MEETING ORDERS RECEIVED FOR COMFORT CARE. BOTH DAUGHTER AND STEP DAUGHTER TO BEDSIDE AT THIS TIME.
--- NOTE | 2023-10-04 12:00 | NUR ---
"Spiritual Care Visit | Comfort Care Pt. is mostly non-responsive. Pts. daughter and step-daughter are at bedside. Re-establish rapport with Pts. daughter and establish rapport for the first-time with Pt's step daughter. Facilitate a lengthy life review and established many common contacts. Prayed with the Pt. and the girls. Brought family a comfort care quilt. Pts. daughter's stepped away from the Pt. to get lunch but verbalized gratitude for the spiriutal care visit."
--- NOTE | 2023-10-04 17:58 | NUR ---
Pt has declined in condition. Physician discussed his decline with daughter and decision made to place on comfort care. Will monitor symptoms and support family as pt progresses. He may not be able to transition home.
--- NOTE | 2023-10-04 18:01 | NUR ---
SHIFT SUMMARY PATIENT TRANSITIONED TO COMFORT CARE THIS MORNING. MEDICATED PER EMAR FOR COMFORT. PATIENT NODS YES/NO TO SIMPLE QUESTIONS. OPENS EYES BRIEFLY AT TIMES. REPOSITIONED FOR COMFORT. GARCIA REMAINS IN PLACE AND PICC TO VENK[place]H SALINE LOCKED. NO OTHER CHANGES THIS SHIFT.
--- NOTE | 2023-10-04 21:22 | NUR ---
ASSUMPTION OF CARE: RECEIVED REPORT FROM EMA OCHOA. PT COMFORT CARE STATUS. PT DOES NOT OPEN EYES TO VERBAL STIMULI. RESPONDS TO PAIN. PT HAS VERY THICK, ANDREW, LARGE AMOUNT OF SECRETIONS. SUCTIONED FREQUENTLY FOR COMFORT. PT MEDICATED PER MAR FOR SECRETIONS AND AIR HUNGER. PT APPEARS COMFORTABLE AT THIS TIME. GARCIA IN PLACE, DRAINING TO GRAVITY. PICC TO VENKATESH SALINE LOCKED. FREQUENT REPOSITIONING FOR COMFORT. BED LOW AND LOCKED. CALL LIGHT IN REACH.
--- NOTE | 2023-10-05 05:17 | NUR ---
TIME OF : TIME OF 47. PT DAUGHTER MERCEDES CALLED AND INFORMED OF TIME OF . PT SENT TO JAE'S HOME AT 0510. PT GLASSES SENT WITH PT PER REQUEST OF DAUGHTER. NO OTHER BELONGINGS.
== END 2023-10-05 00:48 | DRG 644 ==
LOC: ER 09:36 → ICUE 13:55
PROVIDERS: Emergency Medicine; Hospitalist; Internal Medicine; ADMIT Internal Medicine
PROC: 0T9B70Z Drainage of Bladder with Drainage Device, Via Natural or Artificial Opening (ICD-10-PCS; principal; 2023-10-02)
PROC: 3E033GC Introduction of Other Therapeutic Substance into Peripheral Vein, Percutaneous Approach (ICD-10-PCS; 2023-10-02)
DX: E22.2 Syndrome of inappropriate secretion of antidiuretic hormone (principal); I48.20 Chronic atrial fibrillation, unspecified; I50.32 Chronic diastolic (congestive) heart failure; J44.9 Chronic obstructive pulmonary disease, unspecified; I25.10 Atherosclerotic heart disease of native coronary artery without angina pectoris; D50.9 Iron deficiency anemia, unspecified; I35.0 Nonrheumatic aortic (valve) stenosis; Z66 Do not resuscitate; Z51.5 Encounter for palliative care; I11.0 Hypertensive heart disease with heart failure; R54 Age-related physical debility; T50.2X5A Adverse effect of carbonic-anhydrase inhibitors, benzothiadiazides and other diuretics, initial encounter; B96.1 Klebsiella pneumoniae [K. pneumoniae] as the cause of diseases classified elsewhere; Z87.19 Personal history of other diseases of the digestive system; Z95.1 Presence of aortocoronary bypass graft; Z87.01 Personal history of pneumonia (recurrent); I25.2 Old myocardial infarction; Z98.890 Other specified postprocedural states; Z79.82 Long term (current) use of aspirin; Z79.811 Long term (current) use of aromatase inhibitors; Z79.899 Other long term (current) drug therapy; Z11.52 Encounter for screening for COVID-19; Z79.2 Long term (current) use of antibiotics
CPT/HCPCS: 31720; 36415; 36569; 51701; 71045; 80048; 80053; 81001; 82533; 82570; 83735; 83880; 83935; 84132; 84145; 84295; 84300; 84443; 84484; 84550; 85025; 87077; 87086; 87186; 93005; 93010; 94760; 94762; 96361; 96374; 99285-25; A9270; C1751; J1650; J1750; J2060; J2405; J7030; J7050